=== PATIENT | female | born 1985 | race American Indian/Alaskan Native ===

== ENCOUNTER 2019-03-07 22:00 | Emergency (ER) | payer MEDICAID, OTHER ==
[2019-03-07 22:37] VITALS: BP 124/70
--- NOTE | 2019-03-08 01:23 | Emergency Department Report ---
Chief Complaint: Upper Respiratory Infection Stated Complaint: FEVER/HEATH/BODY ACHE/THROAT PAIN Time Seen by Provider: 03/08/19 01:17 - HPI History of Present Illness: Patient is a 33-year-old female who presents to the emergency room with complaints of congestion, mild dry cough, itchy dry throat for two weeks. she states that her temperature was 100.0 yesterday. she denies any productive cough, chest pain, SOB, sinus pain. she states she used tylenol cold and flu and theraflu and nyquil with some relief. she denies any PMHx. she is on depo. A&Ox 3 heart is normal rate, normal rhythm lung sounds are clear bilaterally without w/r/r normal oropharynx pale boggy turbinates with clear nasal drainage no sinus TTP examination appears consistent with allergic rhinitis, allergies pt states that she has had allergies in the past but is not currently taking anything vitals are normal, HR is normal, pt is afebrile, oxygen saturation is normal, RR is normal advised pt may use over the counter medications such as claritin or zyrtec, flonase, and mucinex advised pt to return to the emergency room immediately for any new or worsening symptoms MSE complete no emergent medical condition at this time - Exam Vital Signs: Vital Signs 03/07/19 22:33 Temperature 98.1 F Pulse Rate 80 Respiratory 14 Rate Blood Pressure 124/70 O2 Sat by Pulse 100 Oximetry MSE screening note: Focused history and physical exam performed. ED Disposition for MSE Clinical Impression: Allergic rhinitis Qualifiers: Allergic rhinitis trigger: unspecified Allergic rhinitis seasonality: unspecified Qualified Code(s): J30.9 - Allergic rhinitis, unspecified URI (upper respiratory infection) Qualifiers: URI type: unspecified URI Qualified Code(s): J06.9 - Acute upper respiratory infection, unspecified Disposition: Z-07 MED SCREENING EXAM-LEFT Is pt being admited?: No Does the pt Need Aspirin: No Condition: Stable Instructions: Upper Respiratory Infection (ED), Allergic Rhinitis (ED) Additional Instructions: Please take either Zyrtec or Claritin [id number], use Flonase, take Mucinex. Please increase your fluid intake over the next several days. May drink warm tea and use a humidifier. Follow up with a primary care doctor in t he next 2-3 days for reexamination. Return to the emergency room immediately for any new or worsening symptoms. Referrals: [facility] [Provider Group] - 2-3 Days [facility] [Outside] - 2-3 Days [facility] [Outside] - 2-3 Days Time of Disposition: 01:24 Print Language: MONGOLIAN
== END 2019-03-08 02:13 | disposition left against medical advice (07) ==
LOC: ED 22:00
DX: J30.9 Allergic rhinitis, unspecified (principal); J06.9 Acute upper respiratory infection, unspecified; Z88.2 Allergy status to sulfonamides; Z88.6 Allergy status to analgesic agent
CPT/HCPCS: 99282